=== PATIENT | female | born 1960 | race Caucasian/White ===

== ENCOUNTER 2017-07-03 18:39 | Emergency (ER) | payer OTHER ==
[~2017-07-03 18:39] MED LIST: CORE25TA PO; GLIM2TAB PO; LISI40TA PO; MAXZ25 PO; METF500 PO; PARO20 PO; PERC10TA27 PO; PROT40TA PO; SUMA50 PO; XANA0.5T PO; ZOLP10TA3 PO
[2017-07-03 18:52] VITALS: BP 217/107; PULSE 64; RESP 22; TEMP 97.9; O2SAT 100
[2017-07-03 18:58] VITALS: BP 217/107; PULSE 60; RESP 22; TEMP 97.9; O2SAT 100
[2017-07-03] MEDS ORDERED: SODIUM CHLOR 0.9% 1000 ML INJ 1,000 ML IV SCH (19:26)
--- NOTE | 2017-07-03 19:26 | PD ---
HPI Chief Complaint: GI Complaint Time Seen by Provider: 18:52 Travel History International Travel<30 days: No Contact w/Intl Traveler<30days: No Traveled to known affect area: No History of Present Illness HPI 56-year-old female presents to emergency Department with complaint of epigastric abdominal pain since Saturday. So her primary care provider on Saturday and he did not address her abdominal pain. He told her she needed to get her blood pressure under control. She reports vomiting since Saturday. Denies hematemesis. Denies diarrhea. History of constipation and last had a bowel movement this morning. Denies fevers. Reports dysuria. Has history of urinary frequency and Botox injections into her bladder to control the frequency. Denies chest pain, shortness of breath. Has not taken any medications or tried any treatments to alleviate her symptoms. No known aggravating or relieving factors. Pain is constant. Rates pain 10/10 and describes it as a pressure. History of appendectomy, cholecystectomy, complete hysterectomy. History of hypertension, diabetes type 2, gastric ulcers, GERD, ovarian cancer, urinary frequency, asthma. Takes metoprolol, lisinopril, carvedilol, hydrochlorothiazide for high blood pressure and took all of her medications today but says she vomited afterwards. Takes metformin for diabetes. Allergies to latex. Has no other medical complaints. No other modifying factors or associated signs and symptoms. PFSH Past Medical History Asthma: Yes Anxiety: Yes Depression: Yes Heart Rhythm Problems: No Cardiac Catheterization: No Cardiovascular Problems: Yes High Cholesterol: Yes Chest Pain: Yes Congestive Heart Failure: No Diabetes: Yes Patient Takes Glucophage: Yes Diminished Hearing: No GERD: Yes Genitourinary: Yes (CHRONIC UTI'S) Headaches: Yes Heparin Induced Thrombocytopen: No Hypertension: Yes Insomnia: Yes Musculoskeletal: Yes (CHRONIC BACK PAIN.) Respiratory: Yes (ASTHMA) Immunizations Current: Yes Migraines: Yes Sleep Apnea: Yes Ulcer: Yes ?: Not : 3 Para: 3 Past Surgical History Appendectomy: Yes Section: Yes (X1) Cholecystectomy: Yes Coronary Artery Bypass Graft: No Genitourinary Surgery: Yes (BLADDER MESH X2) Hysterectomy: Yes Family History Family Myocardial Infarction: No Social History Alcohol Use: No Tobacco Use: No (QUIT 1989) Substance Use: No Allergies-Medications (Allergen,Severity, Reaction): Coded Allergies: latex (Unverified Allergy, Unknown, 07/03/17) Reported Meds & Prescriptions Reported Meds & Active Scripts Active Colace (Docusate Sodium) 100 Mg Capsule 1 Tab PO BID 7 Days Zofran Odt (Ondansetron Odt) 4 Mg Tab 4 Mg SL Q12HR PRN Omeprazole 40 Mg Cap 40 Mg PO DAILY Review of Systems Except as stated in HPI: all other systems reviewed are Neg Physical Exam Narrative GENERAL: Well-nourished, well-developed female patient, in no acute distress; afebrile SKIN: Warm and dry. HEAD: Atraumatic. Normocephalic. EYES: Pupils equal and round. No scleral icterus. No injection or drainage. ENT: Mucosa pink and moist. Airway patent. NECK: Trachea midline. CARDIOVASCULAR: Regular rate and rhythm. No murmur appreciated. RESPIRATORY: No accessory muscle use. Clear to auscultation. Breath sounds equal bilaterally. GASTROINTESTINAL: Abdomen soft, tenderness on palpation to epigastric, nondistended. Hepatic and splenic margins not palpable. Bowel sounds are active 4 quadrants. Nonrigid. Patient guarding on exam. BACK: No CVA tenderness. MUSCULOSKELETAL: No obvious deformities. No clubbing. No cyanosis. No edema. NEUROLOGICAL: Awake and alert. Oriented 3. No obvious cranial nerve deficits. Motor grossly within normal limits. Normal speech. PSYCHIATRIC: Appropriate mood and affect; insight and judgment normal. Data Data Last Documented VS Vital Signs Date Time Temp Pulse Resp B/P (MAP) Pulse Ox O2 Delivery O2 Flow Rate FiO2 07/03/17 23:34 70 18 151/75 (100) 100 07/03/17 22:58 Room Air 07/03/17 18:58 97.9 Orders Orders Complete Blood Count With Diff (07/03/17 19:26) Comprehensive Metabolic Panel (07/03/17 19:26) Lipase (07/03/17 19:26) Prothrombin Time / Inr (Pt) (07/03/17:26) Act Partial Throm Time (Ptt) (07/03/17 19:26) Urinalysis - C+S If Indicated (07/03/17 19:26) Iv Access Insert/Monitor (07/03/17 19:26) Ecg Monitoring (07/03/17 19:26) Oximetry (07/03/17:26) Morphine Inj (Morphine Inj) (07/03/17 19:30) Ondansetron Inj (Zofran Inj) (07/03/17 19:30) Sodium Chlor 0.9% 1000 Ml Inj (Ns 1000 M (07/03/17 19:26) Sodium Chloride 0.9% Flush (Ns Flush) (07/03/17 19:30) Pantoprazole Inj (Protonix Inj) (07/03/17 19:30) Morphine Inj (Morphine Inj) (07/03/17 20:30) Ct Abd/Pel W Iv Contrast(Rout) (07/03/17 ) Iohexol 180 Inj (Omnipaque 180 Inj) (07/03/17 21:40) Ed Discharge Order (07/03/17 23:45) Labs Laboratory Tests Test 07/03/17 19:30 White Blood Count 8.5 TH/MM3 Red Blood Count 5.01 MIL/MM3 Hemoglobin 14.6 GM/DL Hematocrit 43.5 % Mean Corpuscular Volume 86.7 FL Mean Corpuscular Hemoglobin 29.2 PG Mean Corpuscular Hemoglobin Concent 33.7 % Red Cell Distribution Width 13.7 % Platelet Count 244 TH/MM3 Mean Platelet Volume 8.0 FL Neutrophils (%) (Auto) 74.4 % Lymphocytes (%) (Auto) 14.3 % Monocytes (%) (Auto) 10.0 % Eosinophils (%) (Auto) 0.9 % Basophils (%) (Auto) 0.4 % Neutrophils # (Auto) 6.3 TH/MM3 Lymphocytes # (Auto) 1.2 TH/MM3 Monocytes # (Auto) 0.8 TH/MM3 Eosinophils # (Auto) 0.1 TH/MM3 Basophils # (Auto) 0.0 TH/MM3 CBC Comment DIFF FINAL Differential Comment Prothrombin Time 11.6 SEC Prothromb Time International Ratio 1.0 RATIO Activated Partial Thromboplast Time 25.2 SEC Urine Color LIGHT-YELLOW Urine Turbidity CLEAR Urine pH 7.0 Urine Specific [place] 1.006 Urine Protein NEG mg/dL Urine Glucose (UA) 300 mg/dL Urine Ketones TRACE mg/dL Urine Occult Blood NEG Urine Nitrite NEG Urine Bilirubin NEG Urine Urobilinogen LESS THAN 2.0 MG/DL Urine Leukocyte Esterase SMALL Urine RBC LESS THAN 1 /hpf Urine WBC 4 /hpf Microscopic Urinalysis Comment CULT NOT INDICATED Blood Urea Nitrogen 14 MG/DL Creatinine 0.90 MG/DL Random Glucose 231 MG/DL Total Protein 8.3 GM/DL Albumin 3.7 GM/DL Calcium Level 9.3 MG/DL Alkaline Phosphatase 146 U/L Aspartate Amino Transf (AST/SGOT) 31 U/L Alanine Aminotransferase (ALT/SGPT) 24 U/L Total Bilirubin 0.8 MG/DL Sodium Level 134 MEQ/L Potassium Level 3.7 MEQ/L Chloride Level 101 MEQ/L Carbon Dioxide Level 23.4 MEQ/L Anion Gap 10 MEQ/L Estimat Glomerular Filtration Rate 65 ML/MIN Lipase 96 U/L [facility] Medical Decision Making Medical Screen Exam Complete: Yes Emergency Medical Condition: Yes Medical Record Reviewed: Yes Differential Diagnosis GERD, PUD, gastritis, gastroenteritis, pancreatitis Narrative Course 56-year-old female with epigastric abdominal pain since Saturday. I discussed the patient with Dr. Benedict, my attending physician, and she agrees with my plan of care. IV site established. CBC, CMP, lipase, coags, urinalysis ordered. Morphine, Protonix, Zofran, normal saline bolus ordered. 2027: CBC, coags unremarkable. Urine glucose 300, otherwise urinalysis without signs of infection. Dr. Benedict evaluated the patient and ordered another dose of morphine and CT abdomen/pelvis. 2100: 2100: Dr. Benedict will assume patient care at this time. See her note for final patient disposition. Scripts Docusate Sodium (Colace) 100 Mg Capsule 1 TAB PO BID for 7 Days Prov: Radha Benedict DO 07/03/17 Ondansetron Odt (Zofran Odt) 4 Mg Tab 4 MG SL Q12HR Y for Nausea/Vomiting, #6 TAB 0 Refills Prov: Radha Benedict DO 07/03/17 Omeprazole (Omeprazole) 40 Mg Cap 40 MG PO DAILY, #15 CAP 0 Refills Prov: Radha Benedict DO 07/03/17 Nori Ga Jul 03, 2017 19:26
[2017-07-03] MEDS ORDERED: ONDANSETRON HCL 4 MG/2 ML VIAL IVP ONE (19:30)
[2017-07-03] MEDS ORDERED: MORPHINE SULFATE 4 MG/ML INJ IV PUSH ONE ×2 (19:30→20:30)
[2017-07-03] MEDS ORDERED: PANTOPRAZOLE SODIUM 40 MG VIAL IV PUSH ONE (19:30)
[2017-07-03] MEDS ORDERED: SODIUM CHLORIDE 0.9% FLUSH 10 ML FLUSH IV FLUSH PRN (19:30)
[2017-07-03 20:01] LABS: AUTOMATED NEUTROPHIL # 6.3 TH/MM3 (1.8-7.7); BASOPHIL % 0.4 % (0.0-2.0); EOSINOPHIL # 0.1 TH/MM3 (0-0.4); EOSINOPHIL % 0.9 % (0.0-4.0); HEMATOCRIT 43.5 % (35.0-46.0); HEMO FLAGS DIFF FINAL; LYMPH % 14.3 % (9.0-44.0); LYMPHOCYTE # 1.2 TH/MM3 (1.0-4.8); MEAN CELL VOLUME 86.7 FL (80.0-100.0); MEAN CORPUSCULAR HEMOGLOBIN 29.2 PG (27.0-34.0); MEAN CORPUSCULAR HGB CONC 33.7 % (32.0-36.0); NEUT % 74.4 % (16.0-70.0); PLATELET COUNT 244 TH/MM3 (150-450); RED BLOOD COUNT 5.01 MIL/MM3 (4.00-5.30); RED CELL DISTRIBUTION WIDTH 13.7 % (11.6-17.2); WHITE BLOOD COUNT 8.5 TH/MM3 (4.0-11.0)
[2017-07-03 20:02] LABS: BLOOD, URINE NEG (NEG); COMMENT (UR) CULT NOT INDICATED; CULTURE IF INDICATED CULT NOT INDICATED; GLUCOSE,URINE 300 mg/dL (NEG); KETONE, URINE TRACE mg/dL (NEG); NITRITE,URINE NEG (NEG); URINE COLOR LIGHT-YELLOW (YELLW/STRAW)
[2017-07-03 20:18] LABS: PROTHROMBIN TIME - PATIENT 11.6 SEC (9.8-11.6)
[2017-07-03 20:21] LABS: APTT (PATIENT) 25.2 SEC (24.3-30.1)
[2017-07-03 20:27] LABS: ALT (GPT) 24 U/L (10-53)
[2017-07-03 20:30] LABS: ALKALINE PHOSPHATASE 146 U/L (45-117); ANION GAP 10 MEQ/L (5-15); AST (GOT) 31 U/L (15-37); BICARBONATE 23.4 MEQ/L (21.0-32.0); BLOOD UREA NITROGEN 14 MG/DL (7-18); CHLORIDE 101 MEQ/L (98-107); GLOMERULAR FILTRATION RATE 65 ML/MIN (>89); POTASSIUM 3.7 MEQ/L (3.5-5.1); SODIUM (NA) 134 MEQ/L (136-145); TOTAL BILIRUBIN ADULT 0.8 MG/DL (0.2-1.0)
--- NOTE | 2017-07-03 20:30 | PD ---
Physical Exam Narrative I, Dr. Benedict, have reviewed the advance practice practitioner's documentation and am in agreement, met with the patient face to face, made the diagnosis, and the medical decision making was done by me. *My assessment and Findings: gastroenteritis vs. peptic ulcer disease vs. pancreatitis 56yo F with epigastric abdominal pain. Last bowel movement was this morning and it was hard. Labs reviewed, no leukocytosis. Glucose elevated at 231. Normal anion gap. CO2 23.4. Lipase normal. Alk phos mildly elevated. Normal bilirubin and LFTs. Pt was quite uncomfortable so given morphine and ordered CT a/p. CT showed nonspecific nonobstructive bowel gas pattern with no inflammatory change. May represent mild ileus and/or gastroenteritis. UA negative. Pt's blood pressure improved to 167/83. Will have pt follow up with GI as an outpatient. Pt tolerating PO in the ED. Data Data Last Documented VS Vital Signs Date Time Temp Pulse Resp B/P (MAP) Pulse Ox O2 Delivery O2 Flow Rate FiO2 07/03/17 23:34 70 18 151/75 (100) 100 07/03/17 22:58 Room Air 07/03/17 18:58 97.9 Orders Orders Complete Blood Count With Diff (07/03/17 19:26) Comprehensive Metabolic Panel (07/03/17 19:26) Lipase (07/03/17 19:26) Prothrombin Time / Inr (Pt) (07/03/17 19:26) Act Partial Throm Time (Ptt) (07/03/17 19:26) Urinalysis - C+S If Indicated (07/03/17 19:26) Iv Access Insert/Monitor (07/03/17 19:26) Ecg Monitoring (07/03/17 19:26) Oximetry (07/03/17 19:26) Morphine Inj (Morphine Inj) (07/03/17 19:30) Ondansetron Inj (Zofran Inj) (07/03/17 19:30) Sodium Chlor 0.9% 1000 Ml Inj (Ns 1000 M (07/03/17 19:26) Sodium Chloride 0.9% Flush (Ns Flush) (07/03/17 19:30) Pantoprazole Inj (Protonix Inj) (07/03/17 19:30) Morphine Inj (Morphine Inj) (07/03/17 20:30) Ct Abd/Pel W Iv Contrast(Rout) (07/03/17 ) Iohexol 180 Inj (Omnipaque 180 Inj) (07/03/17 21:40) Ed Discharge Order (07/03/17 23:45) Labs Laboratory Tests Test 07/03/17 19:30 White Blood Count 8.5 TH/MM3 Red Blood Count 5.01 MIL/MM3 Hemoglobin 14.6 GM/DL Hematocrit 43.5 % Mean Corpuscular Volume 86.7 FL Mean Corpuscular Hemoglobin 29.2 PG Mean Corpuscular Hemoglobin Concent 33.7 % Red Cell Distribution Width 13.7 % Platelet Count 244 TH/MM3 Mean Platelet Volume 8.0 FL Neutrophils (%) (Auto) 74.4 % Lymphocytes (%) (Auto) 14.3 % Monocytes (%) (Auto) 10.0 % Eosinophils (%) (Auto) 0.9 % Basophils (%) (Auto) 0.4 % Neutrophils # (Auto) 6.3 TH/MM3 Lymphocytes # (Auto) 1.2 TH/MM3 Monocytes # (Auto) 0.8 TH/MM3 Eosinophils # (Auto) 0.1 TH/MM3 Basophils # (Auto) 0.0 TH/MM3 CBC Comment DIFF FINAL Differential Comment Prothrombin Time 11.6 SEC Prothromb Time International Ratio 1.0 RATIO Activated Partial Thromboplast Time 25.2 SEC Urine Color LIGHT-YELLOW Urine Turbidity CLEAR Urine pH 7.0 Urine Specific [place] 1.006 Urine Protein NEG mg/dL Urine Glucose (UA) 300 mg/dL Urine Ketones TRACE mg/dL Urine Occult Blood NEG Urine Nitrite NEG Urine Bilirubin NEG Urine Urobilinogen LESS THAN 2.0 MG/DL Urine Leukocyte Esterase SMALL Urine RBC LESS THAN 1 /hpf Urine WBC 4 /hpf Microscopic Urinalysis Comment CULT NOT INDICATED Blood Urea Nitrogen 14 MG/DL Creatinine 0.90 MG/DL Random Glucose 231 MG/DL Total Protein 8.3 GM/DL Albumin 3.7 GM/DL Calcium Level 9.3 MG/DL Alkaline Phosphatase 146 U/L Aspartate Amino Transf (AST/SGOT) 31 U/L Alanine Aminotransferase (ALT/SGPT) 24 U/L Total Bilirubin 0.8 MG/DL Sodium Level 134 MEQ/L Potassium Level 3.7 MEQ/L Chloride Level 101 MEQ/L Carbon Dioxide Level 23.4 MEQ/L Anion Gap 10 MEQ/L Estimat Glomerular Filtration Rate 65 ML/MIN Lipase 96 U/L [facility] Supervised Visit with OSWALD: Yes Diagnosis Primary Impression: Abdominal pain Qualified Codes: R10.13 - Epigastric pain Patient Instructions: General Instructions Departure Forms: Tests/Procedures Additional Instruction: Please follow up with gastroenterology as an outpatient. Return to the ED if symptoms worsen. Med/Other Pt SpecificInfo: Prescription(s) given Scripts Docusate Sodium (Colace) 100 Mg Capsule 1 TAB PO BID for 7 Days Prov: Radha Benedict DO 07/03/17 Ondansetron Odt (Zofran Odt) 4 Mg Tab 4 MG SL Q12HR Y for Nausea/Vomiting, #6 TAB 0 Refills Prov: Radha Benedict DO 07/03/17 Omeprazole (Omeprazole) 40 Mg Cap 40 MG PO DAILY, #15 CAP 0 Refills Prov: Radha Benedict DO 07/03/17 Disposition: 01 DISCHARGE HOME Condition: Stable Radha Benedict DO Jul 03, 2017 20:30
[2017-07-03 20:58] VITALS: BP 225/102; PULSE 72; RESP 20; O2SAT 97
[2017-07-03] MEDS ORDERED: IOHEXOL 180 MG/ML 20 ML VIAL (for RAD DIAG) IVCONTRAST ONE (21:40)
--- NOTE | 2017-07-03 22:06 | RADRPT ---
EXAM DATE/TIME: 07/03/2017 21:39 [place] COMPARISON: No previous studies available for comparison. INDICATIONS : Upper abdominal pain with nausea and vomiting. IV CONTRAST: 96 cc Omnipaque 350 (iohexol) IV ORAL CONTRAST: No oral contrast ingested. RADIATION DOSE: 5.16 CTDIvol (mGy) MEDICAL HISTORY : Hypertension. Gastroesophageal reflux disease. Ulcers.Diabetes SURGICAL HISTORY : Appendectomy. Hysterectomy.Cholecystectomy. ENCOUNTER: Initial ACUITY: 1 day PAIN SCALE: 10/10 LOCATION: abdomen TECHNIQUE: Volumetric scanning of the abdomen and pelvis was performed. Using automated exposure control and ad justment of the mA and/or kV according to patient size, radiation dose was kept as low as reasonably achievable to obtain optimal diagnostic quality images. DICOM format image data is available electro nically for review and comparison. FINDINGS: LOWER LUNGS: The visualized lower lungs are clear. LIVER: Homogeneous density without lesion. There is no dilation of the biliary tree. Status post cholecyste ctomy. There is mild hepatic steatosis. SPLEEN: Normal size without lesion. PANCREAS: Within normal limits. KIDNEYS: Normal in size and shape. There is no mass, stone or hydronephrosis. ADRENAL GLANDS: Within normal limits. VASCULAR: There is no aortic aneurysm. BOWEL/MESENTERY: There is a small hiatal hernia. T there are multiple loops of nondilated air-containing small bowel w ith several small air-fluid levels. Gas and stool is noted segmentally in the colon. There is no foca l inflammatory change or obstruction. There is no free intraperitoneal air or fluid. No oral contrast was given limiting the sensitivity. ABDOMINAL WALL: Within normal limits. RETROPERITONEUM: There is no lymphadenopathy. BLADDER: No wall thickening or mass. REPRODUCTIVE: Within normal limits. INGUINAL: There is no lymphadenopathy or hernia. MUSCULOSKELETAL: Within normal limits for patient age. CONCLUSION: 1. Nonspecific, nonobstructive bowel gas pattern with no inflammatory change. This may represent a mi ld ileus and/or gastroenteritis. 2. Small hiatal hernia. 3. Status post cholecystectomy. 4. Mild hepatic steatosis. Napoleon Lanier MD on July 03, 2017 at 22:03 Board Certified Radiologist. This report was verified electronically.
[2017-07-03 22:58] VITALS: BP 167/83; PULSE 71; RESP 18; O2SAT 97
[2017-07-03] MEDS ORDERED: OMEP40CA2 PO (23:00)
[2017-07-03] MEDS ORDERED: COLA100C5 PO (23:00)
[2017-07-03] MEDS ORDERED: ZOFR4TAB3 SL (23:00)
[2017-07-03 23:34] VITALS: BP 151/75
== END 2017-07-04 00:19 | disposition home or self-care (01) ==
LOC: NEPD 18:39
DX: R10.13 Epigastric pain (principal); K59.00 Constipation, unspecified; R30.0 Dysuria; K44.9 Diaphragmatic hernia without obstruction or gangrene; K76.0 Fatty (change of) liver, not elsewhere classified; I10 Essential (primary) hypertension; E11.9 Type 2 diabetes mellitus without complications; K21.9 Gastro-esophageal reflux disease without esophagitis; J45.909 Unspecified asthma, uncomplicated
CPT/HCPCS: 74177; 80053; 81001; 83690; 85025; 85610; 85730; 96361; 96374; 96375; 96376; 99285; C9113; J2270; J2405; J7030; Q9965